=== PATIENT | male | born 1980 | race Caucasian/White ===

== ENCOUNTER 2020-01-08 08:48 | Outpatient (REF) | payer BC, SELFPAY ==
[2020-01-08 19:42] LABS: Anion Gap 5.7 mmol/L (3-11); BUN 12 mg/dL (7-18); CO2 30.3 mmol/L (21.0-32.0); CREATININE 1.06 mg/dL (0.70-1.30); Calcium 8.9 mg/dL (8.5-10.1); Calculated LDL 149 mg/dL (<100); Chloride 104 mmol/L (98-107); Cholesterol 207 mg/dL (<200); Glucose 88 mg/dL (74-106); HDL Cholesterol 41 mg/dL (40-60); Sodium 140 mmol/L (136-145); Triglyceride 88 mg/dL (<150)
== END 2020-01-08 09:08 ==
LOC: NCHCN 08:48
PROVIDERS: Visit Provider Nurse Practitioner Family
DX: Z00.00 Encounter for general adult medical examination without abnormal findings (principal); Z13.220 Encounter for screening for lipoid disorders; Z13.228 Encounter for screening for other metabolic disorders
CPT/HCPCS: 80048; 80061

== ENCOUNTER 2022-10-03 16:29 | Outpatient (CLI) | payer BC, SELFPAY ==
--- NOTE | 2022-10-03 13:07 | DI.RAD_ITS ---
Exam(s) XR ANKLE LT COMPLETE EXAM: XR ANKLE LT COMPLETE CLINICAL HISTORY: RECURRENT LT ANKLE PAIN AND SWELLING S/P INJURY, M25.572 TECHNIQUE: 2D digital imaging was performed of the left ankle. Three images were obtained. AP, lat eral and oblique views were obtained. COMPARISON: No exams were available for comparison FINDINGS: BONES: No acute fracture is present. No bony destructive lesion is seen. Well corticated osseous dens ities are seen at the level of a talonavicular joint. JOINTS:The ankle mortise is normally aligned. There is a tibial talar joint effusion. SOFT TISSUE: Normal. IMPRESSION: 1. No acute fracture or dislocation. 2. Tibial talar joint effusion. DATA REPOSITORY: RADIATION DOSE DELIVERED:
== END 2022-10-03 16:49 ==
PROVIDERS: Visit Provider Family Medicine
DX: M25.472 Effusion, left ankle (principal); M25.572 Pain in left ankle and joints of left foot
CPT/HCPCS: 73610

== ENCOUNTER 2022-11-22 17:27 | Outpatient (REF) | payer BC, SELFPAY ==
[2022-11-22 18:12] LABS: ALT 49 U/L (16-63); AST 27 U/L (15-37); Albumin 4.2 g/dL (3.4-5.0); Alkaline Phosphatase 64 U/L (46-116); Anion Gap 10.3 mmol/L (3-11); BUN 16 mg/dL (7-18); Bilirubin, Total 0.5 mg/dL (0.2-1.0); CO2 27.7 mmol/L (21.0-32.0); Calcium 8.8 mg/dL (8.5-10.1); Calculated LDL 153 mg/dL (<100); Chloride 104 mmol/L (98-107); Cholesterol 222 mg/dL (<200); Estimated GFR 97.58 (mL/min/1.73m2); Glucose 88 mg/dL (74-106); HDL Cholesterol 49 mg/dL (40-60); Potassium 4.5 mmol/L (3.5-5.1); Sodium 142 mmol/L (136-145); Total Protein 7.8 g/dL (6.4-8.2); Triglyceride 100 mg/dL (<150)
[2022-11-22 23:09] LABS: Uric Acid 8.1 mg/dL (3.5-7.2)
== END 2022-11-22 17:28 | disposition home or self-care (01) ==
LOC: NCHCN 17:27
PROVIDERS: PCP Nurse Practitioner Family; Visit Provider Nurse Practitioner Family
DX: Z00.00 Encounter for general adult medical examination without abnormal findings (principal); E78.5 Hyperlipidemia, unspecified; M25.572 Pain in left ankle and joints of left foot; L30.8 Other specified dermatitis; M10.9 Gout, unspecified
CPT/HCPCS: 80053; 80061; 84550

== ENCOUNTER 2022-12-02 12:38 | Outpatient (REF) | payer BC, SELFPAY ==
[2022-12-02 12:56] LABS: Clarity Cloudy
[2022-12-02 12:57] LABS: Crystals (BF) No Crystals seen; Mononuclear Cells 22 %; Nucleated Cells 36785 uL (0); Polynuclear Cells 78 %
== END 2022-12-02 12:39 | disposition home or self-care (01) ==
LOC: LBN 12:38
PROVIDERS: PCP Nurse Practitioner Family; Visit Provider Student in an Organized Health Care Education/Training Program
DX: M25.572 Pain in left ankle and joints of left foot (principal); M25.472 Effusion, left ankle
CPT/HCPCS: 87070; 87205; 89051; 89060

== ENCOUNTER 2022-12-09 03:43 | Outpatient (CLI) | payer BC, SELFPAY ==
[2022-12-12 10:34] LABS: Lyme Ab w Rflx to Lyme Confirm Negative (Negative)
[2022-12-14 01:18] LABS: Anaplasma phagocytophilum Negative (Negative); B. miyamotoi PCR Negative (Negative); Babesia divergens/MO-1 Negative (Negative); Babesia duncani Negative (Negative); Babesia microti Negative (Negative); Ehrlichia chaffeensis Negative (Negative); Ehrlichia ewingii/canis Negative (Negative); Ehrlichia muris eauclairensis Negative (Negative)
== END 2022-12-09 03:44 | disposition home or self-care (01) ==
LOC: LBO 03:43
PROVIDERS: PCP Nurse Practitioner Family; Visit Provider Student in an Organized Health Care Education/Training Program
DX: M25.472 Effusion, left ankle (principal)
CPT/HCPCS: 36415; 87798; 86618